=== PATIENT | female | born 1960 | race Caucasian/White ===

== ENCOUNTER 2022-04-01 04:11 | Day surgery (SDC) | payer BC, SELFPAY ==
[2022-03-24 15:09] VITALS: BMI 23.8
--- NOTE | 2022-03-24 15:20 | PC.NURSE ---
Report to the Outpatient Waiting Room, entrance under the green pavilion located off [facility], at time _0700_on date ___04/01/22___. OR Time: 09___. - You and your visitor will be asked a series of questions to screen for COVID 19 for your protection. - Only one visitor is allowed at this time. - The patient visitor is requested to leave or wait in car when not with patient. - A mask is required within the hospital. Patients may have clear liquids (water, carbonated beverages, clear teas, apple juice) until 3 hours prior to surgery with a maximum of 20 ounces. - No food from midnight until time of surgery - Infants may have breast milk until 4 hours before surgery, formula 6 hours prior to surgery. - Children will be allowed to drink immediately following surgery. If applicable, please bring a bottle or sippy cup to assist with drinking. Juice, water, soda, and popsicles are readily available. For infants on formula, please bring formula the day of surgery. Pacifiers are allowed. Take the following medications with a SIP of water the morning of surgery:LEVOTHYROXINE Medications to discontinue per physician MULTIVITAMIN Date to take last dose 03/29/22 Please no make-up, nail turkmen, hairspray, perfume, deodorant, or body powder the day of surgery. No jewelry (including any body piercings) or valuables the day of surgery, leave them at home. Please take a shower or bath the night before, or the morning of, surgery with an antibacterial soap. Wear comfortable, loose fitting clothing. Children are encouraged to wear pajamas. - Jewelry must be removed prior to entering the operating room. Rings and piercings that are not removed may be cut off. - The hospital will not accept responsibility for valuables. - Please leave all valuables, including medications, at home the day of surgery. If you are going home after surgery, a licensed tow bar driver must drive you home. - NO public transportation without another adult. - We recommend that an adult stay with you for 24 hours following discharge. - We also recommend that you do not drive, make important decision, drink alcoholic beverages, or take any drugs that were not prescribed by your health care provider for at least 24 hours after your discharge time. For Pediatric surgeries, we recommend two adults accompany the child home (only one inside the building at this time). Follow any additional instructions given to you from your surgeon. If you or anyone in your household have experienced Covid symptoms in the past week, please notify your surgeon or the nurse liaison at the phone number below for possible testing. Telephone instructions given to PATIENT and asked if any additional questions and then verbalized understanding. Patient advised to call surgeon office or pre surgery nurse liaison [phone] if any additional questions.
--- NOTE | 2022-03-30 15:33 | PM.IMHP ---
H&P: HPI History of Present Illness Date/Time: 03/30/22 15:33 Chief Complaint: urge incontinence, fecal incontinence Narrative: this is a woman with refractory fecal incontinence and refractory urge incontinence. She underwent a trial of sacral neuromodulation and received over 50% improvement in symptoms. She is here today for implantation of her permanent sacral neuromodulation device Review of Systems Review of Systems: All systems reviewed & are unremarkable except as noted in HPI and below PMFSH Social History Social History Smoking status: Never smoker Alcohol intake: current Drinks per week: 6 Substance use: never Living arrangements: with family Meds Home Medications and Allergies Home Medications Medication Instructions Recorded Confirmed Type estradiol 10 mcg vaginal tablet 1 tablet vaginal 2XW 03/24/22 03/24/22 History levothyroxine 25 mcg tablet 1 tablet PO DAILY 03/24/22 03/24/22 History pvwwuu-frmzylnc-[id number] 1 cap PO TIDWMEAL 03/24/22 03/24/22 History 24,000-76,000-120,000 unit capsule,delayed rel (Creon) mirtazapine 15 mg tablet 1 tablet PO HS PRN Sleep 03/24/22 03/24/22 History multivit with minerals-iron 18 1 tablet PO DAILY 03/24/22 03/24/22 History mg-folic ac 400 mcg-vit K 25 mcg tablet (Adults Multivitamin) pramipexole 0.25 mg tablet 1 tablet PO PRN PRN Restless Leg(S) 03/24/22 03/24/22 History venlafaxine 150 mg 1 cap PO HS 03/24/22 03/24/22 History capsule,extended release 24 hr venlafaxine 75 mg capsule,extended 1 cap PO HS 03/24/22 03/24/22 History release 24 hr Allergies Allergy/AdvReac Type Severity Reaction Status Date / Time morphine Allergy Severe Hypotension Verified 03/24/22 15:03 chlorhexidine Allergy Intermediate Rash Verified 03/24/22 15:03 [From Hibiclens] povidone-iodine Allergy Intermediate Rash Verified 03/24/22 15:03 [From Betadine] adhesive Allergy Mild Rash Verified 03/24/22 15:28 Penicillins Allergy Mild Rash Unverified 01/28/09 12:08 Sulfa (Sulfonamide Allergy Mild NAUSEA AND Unverified 04/15/09 12:08 Antibiotics) VOMITING, RASH Exam Narrative: no acute distress normal breathing alert oriented x3 Assessment and Plan Assessment and plan (1) Urge incontinence of urine: Code(s): N39.41 - Urge incontinence Status: Acute Assessment and Plan: she will undergo implantation of a sacral neuromodulator. She understands risks of bleeding, infection, abnormal stimulation, lack of efficacy, need for revision and battery changes. She agrees to proceed (2) Fecal incontinence not due to organic disease: Code(s): F98.1 - Encopresis not due to a substance or known physiological condition Status: Acute
--- NOTE | 2022-03-31 14:43 | P.PNAN_ITS ---
Anes - Initial Pre Proc Eval Procedure: Operation Date: 04/01/22 09:00 Proposed Procedures p Implant Neurostimulator Stage Two - Richard Winchester MD Date/Time: 03/31/22 14:43 Surgeon: Richard Winchester MD Pre Op Diagnosis: Complete Incont Feces, Urgency, OAB Patient Data Age: 61 Gender: F Height: 1.65 m Weight: 65 kg Allergies Allergy/AdvReac Type Severity Reaction Status Date / Time morphine Allergy Severe Hypotension Verified 04/01/22 07:43 chlorhexidine Allergy Intermediate Rash Verified 04/01/22 07:43 [From Hibiclens] povidone-iodine Allergy Intermediate Rash Verified 04/01/22 07:43 [From Betadine] adhesive Allergy Mild Rash Verified 04/01/22 07:43 Penicillins Allergy Mild Rash Verified 04/01/22 07:43 Sulfa (Sulfonamide Allergy Mild NAUSEA AND Verified 04/01/22 07:43 Antibiotics) VOMITING, RASH Home Medications Medication Instructions Recorded Confirmed Type estradiol 10 mcg vaginal tablet 1 tablet vaginal 2XW 03/24/22 04/01/22 History levothyroxine 25 mcg tablet 1 tablet PO DAILY 03/24/22 04/01/22 History qpzopo-suxhgqmj-sqtxfxm 1 cap PO TIDWMEAL 03/24/22 04/01/22 History 24,000-76,000-120,000 unit capsule,delayed rel (Creon) mirtazapine 15 mg tablet 1 tablet PO HS PRN Sleep 03/24/22 04/01/22 History multivit with minerals-iron 18 1 tablet PO DAILY 03/24/22 04/01/22 History mg-folic ac 400 mcg-vit K 25 mcg tablet (Adults Multivitamin) pramipexole 0.25 mg tablet 1 tablet PO PRN PRN Restless Leg(S) 03/24/22 04/01/22 History venlafaxine 150 mg 1 cap PO HS 03/24/22 04/01/22 History capsule,extended release 24 hr venlafaxine 75 mg capsule,extended 1 cap PO HS 03/24/22 04/01/22 History release 24 hr Patient hx anesthesia problems: none Family hx anesthesia problems: none Results Review: All pre-operative results and documents have been reviewed as part of the pre- operative evaluation. [facility] Past Medical History Medical History (Updated 03/31/22 @ 14:44 by Davis Montana MD) Pancreatic cancer Urge incontinence of urine Surgical History Surgical History (Updated 03/31/22 @ 14:44 by Davis Montana MD) History of Whipple procedure Social History Social History Smoking status: Never smoker Alcohol intake: current Drinks per week: 6 Substance use: never Living arrangements: with family Anes - Eval Final PreProcedure Day of Procedure 03/31/22 14:43 Patient weight: normal Heart: regular rate and rhythm Lungs: clear to auscultation and normal air movement Airway: Mallampati scale class II Neurological: alert and oriented Last oral intake: >/= 8 hours ASA classification: III Emergent: no Anesthetic plan: proceed Anesthesia type and monitoring: general LMA Results Review: All pre-operative results and documents have been reviewed as part of the pre- operative evaluation. Informed Consent: The patient's anesthetic plan and its attendant risks and benefits were discussed with the patient/family/POA. Questions were solicited and answers provided to the satisfaction of the patient/family/POA.
--- NOTE | ~2022-04-01 | XR_ITS ---
EXAMINATION: FLUORO NEUROSTIM INSERT < 1HR DATE: 04/01/2022 09:18 INDICATION: Interstim phase 2 TECHNIQUE: Frontal and lateral fluoroscopic images of the sacrum were obtained. The amount of fluoros copy time used during this procedure was 1.0 minutes. COMPARISON: None. FINDINGS: Distal tip of an Interstim lead extends from posterior to anterior through an S3 neural for amen. No markers are present indicate whether this on the left or right IMPRESSION: 1. Interstim lead extends through an S3 neural foramen. See procedure note for further detail includi ng on which side the lead has been placed. Reviewed, dictated and finalized at location A. IMPRESSION: 1. Interstim lead extends through an S3 neural foramen. See procedure note for further detail including on which side the lead has been placed.
--- NOTE | 2022-04-01 07:17 | WPDHPUPDATE1 ---
History and Physical Update Update Date/Time: 04/01/22 07:17 History and Physical has been reviewed, including an updated exam of the patient. There are NO changes in the patient's condition. Risks, benefits, and alternatives have been discussed and questions answered. Patient agrees to proceed with procedure.
[2022-04-01 07:33] VITALS: BMI 24.3
[2022-04-01 07:46] VITALS: BP 125/58; PULSE 64; RESP 16; TEMP 36.3; O2SAT 98
[2022-04-01] MEDS: LACTATED RINGERS 1,000 ML 30 ML IV CONT (07:55)
[2022-04-01] MEDS: ceFAZolin 2 GM/D5W 50 ML 2 GM/50 ML BAG IVPB (08:46)
[2022-04-01] MEDS: BUPIVACAINE HCL 0.25% PF 30 ML VIAL INFILTRATE (09:20)
[2022-04-01 09:33] VITALS: BP 128/65; PULSE 69; RESP 14; O2SAT 96
[2022-04-01 10:00] VITALS: BP 139/81; PULSE 66; RESP 14; O2SAT 98
--- NOTE | 2022-04-01 10:09 | W.PM.PROC2 ---
Procedure Note - Detailed Date of Procedure 04/01/22 Pre-op Diagnosis Complete Incont Feces, Urgency, OAB, urge urinary incontinence Post-op Diagnosis Same Procedure Performed Placement of left-sided neurostimulator lead number next placement of neurostimulator battery number next complex neurostimulator programming and impedance check Surgeon Richard Winchester MD Sprinkler Irrigation Equipment Mechanic None Anesthesia MAC Indications This is a with refractory urge incontinence as well as fecal incontinence. She underwent a successful trial of sacral nerve stimulation. She is here today for full implant. She understands risks of bleeding, infection, lack of efficacy, need free of vision, need for battery change. She agrees to proceed Description of Procedure She was correctly identified. Informed consent obtained. She from the operating room. She was placed in prone position. She was given MAC anesthesia. She is allergic to Betadine and chlorhexidine. We prepped with alcohol and peroxide. A time-out performed. I located my sacral landmarks in the AP and lateral orientation. I anesthetized the skin. I entered the S3 foramen on the patient's left. I monitored the needle fluoroscopy. I got appropriate responses at a low threshold on the left S3 placement. I then anesthetized the site of the battery. I made an incision. I created a subcutaneous pocket to house the battery. No cautery was used. I did a skipping incision. I tunneled the lead towards the battery site. Appropriate connections were made. The battery is placed in the pocket. Impedances were checked battery normal. The device was programmed. I copiously irrigated out all wounds. I closed the subcutaneous tissues with 2-0 Vicryl. Skin with 4-0 Vicryl. Glue was applied. She was awakened transferred to PACU in stable condition Implants InterStim implant Estimated Blood Loss -5.0 Drains No Complications No immediate complications Condition Stable Disposition PACU
[2022-04-01 10:30] VITALS: BP 157/68; PULSE 59; RESP 16
--- NOTE | 2022-04-01 10:45 | SUR.PHASEII ---
neurostimulator commercial sales representative in room educating patient
[2022-04-01 11:00] VITALS: BP 146/76; PULSE 55; RESP 16
== END 2022-04-01 11:15 | disposition home or self-care (01) ==
PROVIDERS: PCP Family Medicine; Visit Provider Urology
PROC: (CPT 64590; principal; 2022-04-01 09:00)
DX: N39.41 Urge incontinence (principal); R15.9 Full incontinence of feces; N32.81 Overactive bladder; E03.9 Hypothyroidism, unspecified; Z85.07 Personal history of malignant neoplasm of pancreas
CPT/HCPCS: 64590; 64581; A9270; C1767; C1778; C1787; J0690; J2704; J7120